=== PATIENT | female | born 2000 | race Two or more races ===

== ENCOUNTER 2022-09-07 12:06 | Emergency (ER) | payer MEDICAID ==
[~2022-09-07] VITALS: Ht 165.1 cm; Wt 77.0 kg
[2022-09-07 12:08] VITALS: BP 122/80
[2022-09-07] MEDS ORDERED: ALBUTEROL (0.083%) 2.5MG/3ML NEB HHN STA (12:18)
[2022-09-07] MEDS ORDERED: IPRATROPIUM BROMIDE (0.02%) 0.5MG/2.5ML NEB HHN STA (12:18)
[2022-09-07] MEDS ORDERED: BENZ100C86 MT (14:20)
[2022-09-07] MEDS ORDERED: ALBU6.7H3 INH (14:20)
== END 2022-09-07 14:40 | disposition left against medical advice (07) ==
LOC: ER 12:06
DX: B34.9 Viral infection, unspecified (principal); R06.02 Shortness of breath; I49.9 Cardiac arrhythmia, unspecified; Z20.822 Contact with and (suspected) exposure to COVID-19; Z98.890 Other specified postprocedural states; Z13.9 Encounter for screening, unspecified; Z53.29 Procedure and treatment not carried out because of patient's decision for other reasons
CPT/HCPCS: 71045; 87426; 93005; 94640; 99284; C9803; Z7610

== ENCOUNTER 2024-07-24 19:15 | Emergency (ER) | payer MEDICAID ==
[~2024-07-24] VITALS: Ht 167.6 cm; Wt 94.0 kg
[~2024-07-24 19:15] MED LIST: ALBU6.7H3 INH; BENZ100C86 MT
[2024-07-24 19:44] VITALS: BP 135/92; PULSE 83; RESP 18; TEMP 97.9; O2SAT 100
== END 2024-07-24 22:32 | disposition left against medical advice (07) ==
LOC: ER 19:15
DX: K08.89 Other specified disorders of teeth and supporting structures (principal); Z53.21 Procedure and treatment not carried out due to patient leaving prior to being seen by health care provider